=== PATIENT | female | born 1980 | race Caucasian/White ===

== ENCOUNTER → 2017-10-09 | Outpatient (CLI) | payer OTHER | LOC: COL.VAS 08:00 | DX: L03.115 Cellulitis of right lower limb (principal); S81.811A Laceration without foreign body, right lower leg, initial encounter ==

== ENCOUNTER → 2018-06-13 | Outpatient (CLI) | payer OTHER | LOC: ZCOL.LAB 15:33 | DX: I83.009 Varicose veins of unspecified lower extremity with ulcer of unspecified site (principal); I87.8 Other specified disorders of veins ==

== ENCOUNTER → 2019-02-19 | Outpatient (CLI) | payer OTHER | LOC: ZCOL.LAB 11:48 | DX: L03.115 Cellulitis of right lower limb (principal) ==

== ENCOUNTER → 2019-04-12 | Outpatient (CLI) | payer OTHER | LOC: ZCOL.LAB 16:13 | DX: R30.0 Dysuria (principal) ==